=== PATIENT | female | born 1975 | race Caucasian/White ===

== ENCOUNTER 2017-01-25 09:56 | Emergency (ER) | payer BC ==
[~2017-01-25] VITALS: Ht 157.5 cm; Wt 61.8 kg
[~2017-01-25 09:56] MED LIST: KEFLEX500 MG PO; KLONOPIN0.5 M1 PO; NORCO 5/3251 TABLET PO; VICODIN,LORT1 TABLET PO; WELLBUTRIN SR150 MG PO
[2017-01-25 11:11] LABS: HEMATOCRIT 44.3 % (36.0-46.0); MCH 32.1 PG (29.0-34.0); MCHC 35.9 G/DL (30.0-36.0); MCV 89.3 FL (83-99); MEAN PLAT.VOLUME 8.6 uM^3 (9.5-12.4); PLATELET COUNT 259 K/uL (156-360); RBC DIS.WIDTH-CV 11.7 % (11.8-14.6); RBC DIS.WIDTH-SD 37.8 % (39-53); RED BLOOD COUNT 4.96 M/uL (3.80-5.20); WHITE BLOOD COUNT 8.6 K/uL (4.1-10.2)
[2017-01-25 11:32] LABS: CHLORIDE 111 mEq/L (99-109); POTASSIUM 4.3 mEq/L (3.7-5.4); SODIUM 136 mEq/L (136-147)
[2017-01-25 11:34] LABS: GLUCOSE 91 mg/dL (70-99)
[2017-01-25 11:36] LABS: ANION GAP 9 MEQ/L (2-14)
[2017-01-25 11:38] LABS: GFR ESTIMATE (CALCULATED) > 59 mL/min/
[2017-01-25 11:39] LABS: UREA NITROGEN (BUN) 14 mg/dL (9-23)
[2017-01-25 11:45] LABS: TROP-I INTERPRETATION NEGATIVE; TROPONIN-I < 0.01 ng/mL (0.0-0.30)
[2017-01-25 11:46] LABS: TOTAL BILIRUBIN 0.5 mg/dL (0.0-1.0)
[2017-01-25 11:47] LABS: ALKALINE PHOSPHATASE 50 IU/L (3-129)
[2017-01-25 11:49] LABS: DIRECT BILIRUBIN 0.2 mg/dL (0.0-0.3)
[2017-01-25 11:50] LABS: LIPASE 24 U/L (1.0-51.0)
[2017-01-25 13:45] LABS: TROP-I INTERPRETATION NEGATIVE; TROPONIN-I < 0.01 ng/mL (0.0-0.30)
[2017-01-25] MEDS ORDERED: LISINOPRIL5 MG PO (14:15)
[2017-01-25] MEDS ORDERED: ATARAX,VISTARIL25 MG PO (14:15)
[2017-01-25 15:00] VITALS: BP 156/94
== END 2017-01-25 15:02 | disposition home or self-care (01) ==
LOC: EME 09:56
PROVIDERS: Nurse Practitioner Family
DX: R07.9 Chest pain, unspecified (principal); F41.9 Anxiety disorder, unspecified; I10 Essential (primary) hypertension; F17.200 Nicotine dependence, unspecified, uncomplicated; Z91.040 Latex allergy status; Z88.6 Allergy status to analgesic agent; Z88.0 Allergy status to penicillin
CPT/HCPCS: 71020; 80048; 80076; 83690; 84484; 85027; 93005; 99281; 99283; J1885